=== PATIENT | female | born 1965 | race Caucasian/White ===

== ENCOUNTER 2019-06-15 08:20 | Emergency (ER) | payer MEDICAID ==
[2019-06-15] MEDS ORDERED: CITA-145 PO (08:29)
[2019-06-15] MEDS ORDERED: PANT40TA65 PO (08:29)
[2019-06-15] MEDS ORDERED: ESTR0.62 PO (08:29)
[2019-06-15] MEDS ORDERED: CARI250T10 PO (09:22)
[2019-06-15] MEDS ORDERED: AMIT-108 PO (09:22)
[2019-06-15] MEDS ORDERED: predniSONE 5 MG TAB PO ONE (09:45)
[2019-06-15] MEDS ORDERED: AMITRIPTYLINE HCL 25 MG TAB PO ONE (09:45)
[2019-06-15] MEDS ORDERED: CARISOPRODOL 350 MG TAB PO ONE (09:45)
[2019-06-15 10:00] VITALS: BP 157/107
[2019-06-15] MEDS ORDERED: predniSONE 20 MG TAB PO ONE (10:04)
--- NOTE | 2019-06-15 10:12 | ER Report ---
History and Physical Time Seen By MD: 09:20 Hx. of Stated Complaint: BILAT FOOT FOOT PAIN WITH WOUNDS HPI/ROS CHIEF COMPLAINT: Acute on chronic foot pain HISTORY OF PRESENT ILLNESS: 53-year-old female with a history of idiopathic neuropathy of feet presents complaining of bilateral foot pain increasing. Patient traveled out here by car 1200 miles and she did not bring her codon, Soma, or amitriptyline. Patient has chronic neuropathy of the feet and blistering and breakdown of the feet as well. Her right foot is worse with pain and breakdown than her left foot which is normal. She did not bring any socks or shoes. Her is a batch trucker and has chronic lower extremity problems and had a foot amputation in this hospital yesterday. Patient generally wears socks and puts [place] ointment on her feet. She is very anxious and stressed out about this because her but because of her health, her daughter was just murdered, and she has stepdaughter and uses drugs living at their home. Patient has been tried on Lyrica, gabapentin, and your benzodiazepines. She refuses to take any of these. Patient has history of the idiopathic neuropathy, anxiety, depression, on replacement therapy, chronic pain, irritable bowel syndrome with spastic pain, COPD, reactive airway disease and she quit smoking 3 years ago. Patient does have some nausea right now and she does have Zofran which has been helpful. She also takes Protonix for her stomach. REVIEW OF SYSTEMS: Constitutional: No fever, no chills. Eyes: No discharge. ENT: No sore throat. Patient does have dentures. Cardiovascular: No chest pain, no palpitations. Respiratory: No cough, no shortness of breath. Gastrointestinal: Patient has chronic abdominal pain epigastric and she has nausea and vomiting at this time because the irritable bowel as well as the stress that she is under. Her Zofran and Protonix is helping in this area.. Genitourinary: No hematuria. Musculoskeletal: No back pain. Chronic bilateral foot pain with plantar foot breakdown, contractures and especially increasing wounds over the plantar foot. Skin: No rashes. The foot problems as described above Neurological: No headache. DIFFERENTIAL DIAGNOSIS: After history and physical exam differential diagnosis was considered for idiopathic neuropathy of the feet with acute on chronic pain. History of depression and anxiety was marked increase of the anxiety during this road trip. Chronic pain and treatment for chronic pain worsened during this trip. He'll bowel syndrome worsened during his trip. Remainder of the 14 system rev: Yes Allergies: Coded Allergies: codeine (Verified Allergy, Intermediate, 06/15/19) Home Meds Active Scripts Prednisone (PREDNISONE) 20 Mg Tablet, 20 MG PO QDAY for PAIN for 10 Days, #10 TAB Prov:ASHKAN VAUGHN MD 06/15/19 Carisoprodol (SOMA) 350 Mg Tablet, 350 MG PO BID for Muscle Relaxant, #20 TAB Prov:ASHKAN VAUGHN MD 06/15/19 Amitriptyline Hcl (AMITRIPTYLINE HCL) 25 Mg Tablet, 25 MG PO QHS PRN for sleep, #10 TAB Prov:ASHKAN VAUGHN MD 06/15/19 Reported Medications Carisoprodol (SOMA) 250 Mg Tablet, 250 MG PO PRN, TAB 06/15/19 Amitriptyline Hcl (AMITRIPTYLINE HCL) 50 Mg Tablet, 50 MG PO QHS, #5 TAB 06/15/19 Citalopram Hydrobromide (CITALOPRAM HBR) 20 Mg Tablet, 20 MG PO QDAY, #5 TAB 06/15/19 Estrogens, Conjugated 0.625 Mg Tab (PREMARIN 0.625 MG TAB) 0.625 Mg Tablet, 0.625 MG PO QDAY, TAB 06/15/19 Pantoprazole Sodium (PANTOPRAZOLE SODIUM) 40 Mg Tablet.dr, 40 MG PO QDAY, TAB.SR 06/15/19 Past Medical/Surgical History Patient is allergic to codeine or at least sensitive in that it makes her sick. Patient prefers also not to take benzodiazepines, Lyrica, or [place] because it makes her feel. Illnesses: Hormone replacement therapy, depression, anxiety, chronic pain syndrome, idiopathic neuropathy of the feet, irritable bowel syndrome with spasticity, COPD, and reactive airway disease. Patient stopped smoking 3 years ago. Surgeries: Cholecystectomy, laparoscopy for an abdominal fluid-filled cyst and incidental appendectomy, total hysterectomy Reviewed Nurses Notes: Yes Hx Smoking: Yes Smoking Status: Former Smoker Constitutional Vital Sign - Last 24 Hours 06/15/19 06/15/19 06/15/19 06/15/19 08:26 08:30 09:00 09:30 Temp 98.9 Pulse 122 115 110 112 Resp 18 B/P (MAP) 169/110 173/110 (131) 169/104 (125) 180/105 (130) Pulse Ox 92 92 91 92 O2 Delivery Room Air 06/15/19 10:00 Pulse 110 B/P (MAP) 157/107 (124) Physical Exam General Appearance: The patient is alert, has no immediate need for airway protection and no current signs of toxicity. [ ] Eyes: Pupils equal and round no injection. Respiratory: Chest is non tender, lungs are clear to auscultation. Cardiac: regular rate and rhythm Gastrointestinal: Abdomen is soft and tender only slightly in the epigastric area., no masses, bowel sounds normal. Musculoskeletal: Neck: Neck is supple and non tender. Extremities have full range of motion except for any contractured toes and with plantar and dorsiflexion of the feet and are non tender. Patient has breakdown into the subcutaneous tissue of the plantar part of the forefoot up in special into the great toe on the right and similar but small areas of breakdown on the left plantar over the lateral MP area and up onto the toe. Her feet are very tender to touch. Skin: No rashes or lesions. Medical Decision Making ED Course/Re-evaluation ED Course Patient was evaluated and found to have an acute on chronic pain problem. She also has a lot of anxiety and sleep problem. Patient has etiopathic neuropathy of the feet with foot breakdown. She is also not sleeping well and she is very stressed out. Patient was given prednisone 20 mg, Elavil 25 mg to help with her sleep as well as pain. Soma 350 mg once and [place] 5 mg #10 mg. Decision to Disposition Date: Jun 15, 2019 Decision to Disposition Time: 10:00 Depart Departure Latest Vital Signs Vital Signs Date Time Temp Pulse Resp B/P (MAP) Pulse Ox O2 Delivery O2 Flow Rate FiO2 06/15/19 10:00 110 157/107 (124) 06/15/19 09:30 92 06/15/19 08:26 98.9 18 Room Air Impression: Primary Impression: Foot and toe(s), blister, without mention of infection Additional Impressions: Anxiety as acute reaction to exceptional stress Insomnia disorder Condition: Improved Disposition: HOME OR SELF-CARE New Scripts Prednisone (PREDNISONE) 20 Mg Tablet 20 MG PO QDAY for PAIN for 10 Days, #10 TAB Prov: ASHKAN VAUGHN MD 06/15/19 Carisoprodol (SOMA) 350 Mg Tablet 350 MG PO BID for Muscle Relaxant, #20 TAB Prov: ASHKAN VAUGHN MD 06/15/19 Amitriptyline Hcl (AMITRIPTYLINE HCL) 25 Mg Tablet 25 MG PO QHS PRN for sleep, #10 TAB Prov: ASHKAN VAUGHN MD 06/15/19 Departure Forms: ER Transition Record, Medications Reconciliation, Patient Portal Information Patient Instructions: Anxiety (ED), Diabetic Peripheral Neuropathy (ED) Additional Instructions: Prednisone 20 mg one a day for 10 days. Soma 3 her 50 mg take one tablet twice a day if needed for pain, anxiety, and spasms. Elavil 25 mg at bedtime for sleep but it also helps for anxiety and pain. Dressing changes with Vaseline to your feet daily. Follow-up with your PCP is essentially get back to home. Problem Qualifiers Additional Impressions: Insomnia disorder Insomnia type: primary Qualified Codes: F51.01 - Primary insomnia ASHKAN VAUGHN MD Jun 15, 2019 10:12
[2019-06-15] MEDS ORDERED: PRED20TA6 PO (10:21)
[2019-06-15] MEDS ORDERED: AMIT-106 PO (10:21)
[2019-06-15] MEDS ORDERED: CARI-1 PO (10:21)
[2019-06-15] MEDS ORDERED: APAP/HYDROCODONE 325/5 TAB PO ONE (10:40)
[2019-06-16] MEDS ORDERED: LOR5/325 PO (16:38)
== END 2019-06-15 10:24 | disposition home or self-care (01) ==
LOC: ER 09:25
DX: S90.822A Blister (nonthermal), left foot, initial encounter (principal); S90.821A Blister (nonthermal), right foot, initial encounter; G89.29 Other chronic pain; F41.9 Anxiety disorder, unspecified; F51.01 Primary insomnia
CPT/HCPCS: 99283; J7512

== ENCOUNTER 2019-06-16 15:10 | Emergency (ER) | payer MEDICAID ==
[~2019-06-16 15:10] MED LIST: AMIT-106 PO; AMIT-108 PO; CARI-1 PO; CARI250T10 PO; CITA-145 PO; ESTR0.62 PO; PANT40TA65 PO; PRED20TA6 PO
[2019-06-16 15:14] VITALS: BP 172/93
--- NOTE | 2019-06-16 15:31 | ER Report ---
History and Physical Time Seen By MD: 15:26 Hx. of Stated Complaint: WORSENING OF PAIN ON RIGHT FOOT. HPI/ROS CHIEF COMPLAINT: Lateral foot pain and needs wound dressing change HISTORY OF PRESENT ILLNESS: 53-year-old female who was seen yesterday for idiopathic neuropathy chronic foot pain with contraction problems and wound problems presents back today for wound dressing change on her feet. She is also having increasing pain in the seat. Patient was given 2 [place] yesterday. She was able to sleep 5 hours as she was given Elavil and Soma as well. She does think that the wounds looked better but the foot pain is still quite severe. REVIEW OF SYSTEMS: Respiratory: No cough, no dyspnea. Cardiovascular: No chest pain, no palpitations. Gastrointestinal: No vomiting, no abdominal pain. Musculoskeletal: No back pain. Patient was jumping feet and the wound pain from idiopathic neuropathy pain. Remainder of the 14 system rev: Yes Allergies: Coded Allergies: codeine (Verified Allergy, Intermediate, 06/16/19) Home Meds Active Scripts Prednisone (PREDNISONE) 20 Mg Tablet, 20 MG PO QDAY for PAIN for 10 Days, #10 TAB Prov:ASHKAN VAUGHN MD 06/15/19 Carisoprodol (SOMA) 350 Mg Tablet, 350 MG PO BID for Muscle Relaxant, #20 TAB Prov:ASHKAN VAUGHN MD 06/15/19 Amitriptyline Hcl (AMITRIPTYLINE HCL) 25 Mg Tablet, 25 MG PO QHS PRN for sleep, #10 TAB Prov:ASHKAN VAUGHN MD 06/15/19 Reported Medications Carisoprodol (SOMA) 250 Mg Tablet, 250 MG PO PRN, TAB 06/15/19 Amitriptyline Hcl (AMITRIPTYLINE HCL) 50 Mg Tablet, 50 MG PO QHS, #5 TAB 06/15/19 Citalopram Hydrobromide (CITALOPRAM HBR) 20 Mg Tablet, 20 MG PO QDAY, #5 TAB 06/15/19 Estrogens, Conjugated 0.625 Mg Tab (PREMARIN 0.625 MG TAB) 0.625 Mg Tablet, 0.625 MG PO QDAY, TAB 06/15/19 Pantoprazole Sodium (PANTOPRAZOLE SODIUM) 40 Mg Tablet.dr, 40 MG PO QDAY, TAB.SR 06/15/19 Past Medical/Surgical History REVIEW OF SYSTEMS: Constitutional: No fever, no chills. Eyes: No discharge. ENT: No sore throat. Patient does have dentures. Cardiovascular: No chest pain, no palpitations. Respiratory: No cough, no shortness of breath. Gastrointestinal: Patient has chronic abdominal pain epigastric and she has nausea and vomiting at this time because the irritable bowel as well as the stress that she is under. Her Zofran and Protonix is helping in this area.. Genitourinary: No hematuria. Musculoskeletal: No back pain. Chronic bilateral foot pain with plantar foot breakdown, contractures and especially increasing wounds over the plantar foot. Skin: No rashes. The foot problems as described above Neurological: No headache. DIFFERENTIAL DIAGNOSIS: After history and physical exam differential diagnosis was considered for idiopathic neuropathy of the feet with acute on chronic pain. History of depression and anxiety was marked increase of the anxiety during this road trip. Chronic pain and treatment for chronic pain worsened during this trip. He'll bowel syndrome worsened during his trip. Remainder of the 14 system rev: Yes Reviewed Nurses Notes: Yes Hx Smoking: Yes Smoking Status: Former Smoker Constitutional Vital Sign - Last 24 Hours 06/16/19 15:14 Temp 98.5 Pulse 103 Resp 12 B/P (MAP) 172/93 Pulse Ox 94 O2 Delivery Room Air Physical Exam Gen.: Well-developed well-nourished and patient later back with her feet spasming causing some pain. HEENT-unremarkable Right foot with dosing contractures as is normal for her. The wound dressing has been removed and the wound itself looks improved. Still had a lot of pain. Left foot has far less in the way of wounds but still with pain. Medical Decision Making ED Course/Re-evaluation ED Course Patient presented for wound care dressing change as well as increasing pain in her feet. The dressing was removed and both feet actually look improved over yesterday. She is only given 2 Lortab 5/25's yesterday and that took her 24 hours by breaking those in half and taking a half every 6 hours. She is having a lot of spastic or spasm type pain in the feet at the present time. The dressings were changed and she tolerated that well. She is given hydrocodone/APAP 5/325 #2 pills at this time. Decision to Disposition Date: Jun 16, 2019 Decision to Disposition Time: 16:33 Depart Departure Latest Vital Signs Vital Signs Date Time Temp Pulse Resp B/P (MAP) Pulse Ox O2 Delivery O2 Flow Rate FiO2 06/16/19 15:14 98.5 103 12 172/93 94 Room Air Impression: Primary Impression: Encounter for wound care Additional Impression: Foot pain, bilateral Condition: Improved Disposition: HOME OR SELF-CARE New Scripts Hydrocodone Bit/Acetaminophen (HYDROCODON-ACETAMINOPHEN 5-325) 1 Each Tablet 1 EACH PO Q4H PRN for PAIN, #20 TAB 0 Refills Prov: ASHKAN VAUGHN MD 06/16/19 Patient Instructions: Acute Wound Care (ED) Additional Instructions: Continue to take Elavil 25 mg to 50 mg at at bedtime for sleep and also for pain. Soma 325 mg twice a day for the spasms that you're having any feet. Lortab 5/325 mg 1 tablet 2 or 4 times a day as needed for foot pain. Dressing changes every 2 days for now and dress with Vaseline. Watch for infection. Problem Qualifiers ASHKAN VAUGHN MD Jun 16, 2019 15:31
[2019-06-16] MEDS ORDERED: APAP/HYDROCODONE 325/5 TAB PO ONE (16:10)
[2019-06-16] MEDS ORDERED: LOR5/325 PO (16:38)
== END 2019-06-16 16:40 | disposition home or self-care (01) ==
LOC: ER 15:39
DX: M79.672 Pain in left foot (principal); M79.671 Pain in right foot
CPT/HCPCS: 99283

== ENCOUNTER 2019-06-19 10:21 | Emergency (ER) | payer MEDICAID ==
[~2019-06-19 10:21] MED LIST changes: +LOR5/325 PO
--- NOTE | 2019-06-19 10:24 | ER Report ---
History and Physical Time Seen By MD: 10:20 HPI/ROS CHIEF COMPLAINT: Abdominal pain, palpitations, foot pain HISTORY OF PRESENT ILLNESS: Patient is a 53-year-old female here with complaints of the above. Patient is in town visiting her who recently had an amputation BKA. Patient reports palpitations, rapid heart rate, general malaise, generalized abdominal pain, constipation 5 days. Patient is afebrile, mildly tachycardic but hemodynamically stable at time of evaluation. Patient does endorse nausea but denies vomiting. REVIEW OF SYSTEMS: Constitutional: No fever, no chills. Eyes: No discharge. ENT: No sore throat. Cardiovascular: No chest pain, + palpitations. Respiratory: No cough, no shortness of breath. Gastrointestinal: + Generalized abdominal pain, no vomiting. + nausea Genitourinary: No hematuria. Musculoskeletal: No back pain. Skin: No rashes. Neurological: No headache. Allergies: Coded Allergies: codeine (Verified Allergy, Intermediate, 06/16/19) Home Meds Active Scripts Hydrocodone Bit/Acetaminophen (HYDROCODON-ACETAMINOPHEN 5-325) 1 Each Tablet, 1 TAB PO Q4H PRN for PAIN, #20 TAB 0 Refills Prov:ANAMARIA LAZO DO 06/19/19 Carisoprodol (SOMA) 350 Mg Tablet, 350 MG PO BID PRN for MUSCLE SPASMS, #20 TAB Prov:ANAMARIA LAZO DO 06/19/19 Prednisone (PREDNISONE) 20 Mg Tablet, 20 MG PO QDAY for PAIN for 10 Days, #10 TAB Prov:ASHKAN VAUGHN MD 06/15/19 Amitriptyline Hcl (AMITRIPTYLINE HCL) 25 Mg Tablet, 25 MG PO QHS PRN for sleep, #10 TAB Prov:ASHKAN VAUGHN MD 06/15/19 Reported Medications Amitriptyline Hcl (AMITRIPTYLINE HCL) 50 Mg Tablet, 50 MG PO QHS, #5 TAB 06/15/19 Citalopram Hydrobromide (CITALOPRAM HBR) 20 Mg Tablet, 20 MG PO QDAY, #5 TAB 06/15/19 Estrogens, Conjugated 0.625 Mg Tab (PREMARIN 0.625 MG TAB) 0.625 Mg Tablet, 0.625 MG PO QDAY, TAB 06/15/19 Pantoprazole Sodium (PANTOPRAZOLE SODIUM) 40 Mg Tablet.dr 40 MG PO QDAY, TAB.SR 06/15/19 Discontinued Reported Medications Carisoprodol (SOMA) 250 Mg Tablet, 250 MG PO PRN, TAB 06/15/19 Discontinued Scripts Hydrocodone Bit/Acetaminophen (HYDROCODON-ACETAMINOPHEN 5-325) 1 Each Tablet, 1 EACH PO Q4H PRN for PAIN, #20 TAB 0 Refills Prov:ASHKAN VAUGHN MD 06/16/19 Carisoprodol (SOMA) 350 Mg Tablet, 350 MG PO BID for Muscle Relaxant, #20 TAB Prov:ASHKAN VAUGHN MD 06/15/19 Hx Smoking: Yes Smoking Status: Former Smoker Constitutional Vital Sign - Last 24 Hours 06/19/19 06/19/19 06/19/19 06/19/19 10:21 10:35 10:37 10:42 Pulse 118 B/P (MAP) 87/25 (45) 210/124 (152) 196/122 (146) 06/19/19 06/19/19 06/19/19 06/19/19 10:45 10:51 11:00 11:21 Temp 98.3 Pulse 112 111 110 Resp 18 11 21 B/P (MAP) 175/105 (128) Pulse Ox 95 92 92 O2 Delivery Room Air 06/19/19 06/19/19 06/19/19 06/19/19 11:26 11:56 12:00 12:05 Pulse 111 107 106 Resp 9 9 7 B/P (MAP) 173/102 (125) Pulse Ox 92 98 97 06/19/19 06/19/19 06/19/19 06/19/19 12:30 12:35 13:00 13:05 Pulse 110 110 Resp 16 14 B/P (MAP) 181/97 (125) 179/111 (133) Pulse Ox 94 92 06/19/19 06/19/19 06/19/19 06/19/19 13:10 13:20 13:30 13:40 Pulse 112 112 Resp 18 8 B/P (MAP) 191/104 (133) 174/104 (127) Pulse Ox 88 93 06/19/19 06/19/19 14:00 14:10 Pulse 113 Resp 13 B/P (MAP) 177/103 (127) Pulse Ox 92 Physical Exam General Appearance: The patient is alert, has no immediate need for airway protection and no signs of toxicity. Anxious appearing Eyes: Pupils equal and round no pallor or injection. ENT, Mouth: Mucous membranes are moist. Respiratory: There are no retractions, lungs are clear to auscultation. Cardiovascular: Rapid regular rhythm Gastrointestinal: Abdomen is soft and + mildly tender, no masses, bowel sounds normal. No rebound or guarding Neurological: No focal neurological deficits, cranial nerves intact Skin: Warm and dry, no rashes. Musculoskeletal: Neck is supple non tender. Extremities are nontender, nonswollen and have full range of motion. DIFFERENTIAL DIAGNOSIS: After history and physical exam differential diagnosis was considered for abdominal pain including but not limited to appendicitis, cholecystitis, gastritis and urinary tract infection.adult fever including but not limited to viral syndromes including urinary tract infection, pneumonia and sepsis. Medical Decision Making Data Points Result Diagram: 06/19/19 1035 06/19/19 1035 Laboratory Hematology Test 06/19/19 10:35 White Blood Count 17.1 k/uL (4.5-11.0) H Red Blood Count 4.42 M/uL (4.17-5.56) Hemoglobin 14.3 g/dL (12.0-16.0) Hematocrit 41.2 % (34.0-47.0) Mean Corpuscular Volume 93.3 fL (80.0-96.0) Mean Corpuscular Hemoglobin 32.3 pg (26.0-33.0) Mean Corpuscular Hemoglobin Concent 34.6 g/dL (32.0-36.0) Red Cell Distribution Width 14.1 % (11.5-14.5) Platelet Count 534 K/uL (150-450) H Mean Platelet Volume 6.5 fL (7.2-11.1) L Neutrophils (%) (Auto) 65.5 % (39.4-72.5) Lymphocytes (%) (Auto) 29.0 % (17.6-49.6) Monocytes (%) (Auto) 4.2 % (4.1-12.4) Eosinophils (%) (Auto) 0.7 % (0.4-6.7) Basophils (%) (Auto) 0.6 % (0.3-1.4) Nucleated RBC Relative Count (auto) 0.1 /100WBC Neutrophils # (Auto) 11.2 K/uL (2.0-7.4) H Lymphocytes # (Auto) 5.0 K/uL (1.3-3.6) H Monocytes # (Auto) 0.7 K/uL (0.3-1.0) Eosinophils # (Auto) 0.1 K/uL (0.0-0.5) Basophils # (Auto) 0.1 K/uL (0.0-0.1) Nucleated RBC Absolute Count (auto) 0.01 K/uL Peripheral Blood Smear Yes Y/N Chemistry Test 06/19/19 10:35 Sodium Level 142 mmol/L (137-145) Potassium Level 3.1 mmol/L (3.5-5.0) Chloride Level 98 mmol/L (98-107) Carbon Dioxide Level 28 mmol/L (22-31) Blood Urea Nitrogen 12 mg/dl (7-18) Creatinine 0.90 mg/dl (0.52-1.04) Glomerular Filtration Rate Calc > 60.0 Random Glucose 159 mg/dl (75-110) Lactate 1.5 mmol/L (0.7-2.1) Calcium Level 9.2 mg/dl (8.4-10.2) Total Bilirubin 0.4 mg/dl (0.2-1.3) Aspartate Amino Transf (AST/SGOT) 28 U/L (0-35) Alanine Aminotransferase (ALT/SGPT) 24 U/L (0-56) Alkaline Phosphatase 131 U/L (0-126) Troponin I < 0.012 ng/ml Total Protein 9.0 g/dl (6.3-8.2) Albumin 4.8 g/dl (3.5-5.0) Lipase 32 U/L (23-300) Thyroid Stimulating Hormone (TSH) 1.57 uIU/ml (0.46-4.68) Urinalysis Test 06/19/19 13:18 Urine Color Yellow Urine Clarity Slightly-cloudy Urine pH 7.0 pH (4.8-9.5) Urine Specific [place] 1.031 Urine Protein Negative mg/dL (NEGATIVE) Urine Glucose (UA) Negative mg/dL (NEGATIVE) Urine Ketones Trace mg/dL (NEGATIVE) Urine Blood Small (NEGATIVE) Urine Nitrite Negative (NEGATIVE) Urine Bilirubin Negative (NEGATIVE) Urine Urobilinogen Negative mg/dL (0.2-1.9) Urine Leukocyte Esterase Negative (NEGATIVE) Urine RBC 1 /HPF (0-2/HPF) Urine WBC 1 /HPF (0-5/HPF) Urine Squamous Epithelial Cells Many /LPF (</=FEW) Urine Bacteria Few /HPF (NONE-FEW) Urine Hyaline Casts Few /LPF (NONE-FEW) Urine Mucus Few /HPF (NONE-FEW) EKG/Imaging EKG Interpretation 12 lead EKG: Sinus tachycardia, ventricular rate 117, QTC 443, no ischemic changes Rhythm: Sinus tachycardia [place]: normal QRS: normal ST segments: normal Imaging PATIENT NAME: Ivette Villela : 1965 MR: [id number] V: [id number] EXAM DATE: ORDERING PHYSICIAN: ANAMARIA LAZO TECHNOLOGIST: Location: [facility] Patient: Ivette Villela : 1965 Visit/Account:[id number] Date of Sevice: 06/19/2019 CT CHEST ABDOMEN PELVIS W/CON HISTORY: SOB, diffuse abd pain, tachy TECHNIQUE: CT chest, abdomen and pelvis with intravenous contrast. One of the following dose optimization techniques was utilized in the performance of this exam: Automated exposure control; adjustment of the mA and/or kV according to the patient's size; or use of an iterative reconstruction technique. Specific details can be referenced in the facility's radiology CT exam operational policy. CONTRAST: Isovue-370 75 mL COMPARISON: None. FINDINGS: CHEST: Lungs: Central airways are patent. No concerning pulmonary parenchymal abnormalities. Heart and pulmonary vessels: Normal heart size. Vessels follow normal course and caliber. Mediastinum:Unremarkable Caprice: Negative. Pleura: Negative. Chest wall: Negative. Bones:No aggressive lesions. ABDOMEN/PELVIS: Hepatobiliary: Negative. Cholecystectomy Spleen: Negative. Adrenals: Negative. Pancreas: Negative. Kidneys: Low-density lesions are most likely cysts. Largest in the right kidney measures 1.4 cm. GI: No appendicitis or diverticulitis. Moderate stool burden. Low pelvic anastomosis appears satisfactory Vessels/spaces/nodes: Negative. Pelvis/bladder: Hysterectomy. Bladder is unremarkable Bones/soft tissues: Degenerative changes of the left hip. IMPRESSION: No CT correlate for abdominal pain. Degenerative changes of the left femoral head, question avascular necrosis. Moderate stool burden may correlate with constipation. Additional chronic findings as above. Report Dictated By: Antonio Lucio MD at 06/19/2019 12:05 PM Report E-Signed By: Antonio Lucio MD at 06/19/2019 12:11 PM WSN:[id number] ED Course/Re-evaluation ED Course Patient is a 53-year-old female here with complaints of abdominal discomfort, pain, general malaise, palpitations. Patient was administered Ativan, normal saline bolus, analgesics with significant improvement in symptoms. CT imaging of the chest abdomen pelvis showed no acute findings but did demonstrate moderate stool burden. There is no pain in the hips bilaterally. Patient was given scripts for analgesics, Soma. Labs were remarkable for a mild leukocytosis without a shift in the setting of current prednisone treatment. Recommend close PCP follow-up. Return precautions provided. Decision to Disposition Date: Jun 19, 2019 Decision to Disposition Time: 14:08 Depart Departure Latest Vital Signs Vital Signs Date Time Temp Pulse Resp B/P (MAP) Pulse Ox O2 Delivery O2 Flow Rate FiO2 06/19/19 14:10 113 13 92 06/19/19 14:00 177/103 (127) 06/19/19 10:45 98.3 Room Air Impression: Primary Impression: Foot pain, bilateral Additional Impressions: Abdominal pain Constipation Condition: Improved Disposition: HOME OR SELF-CARE New Scripts Hydrocodone Bit/Acetaminophen (HYDROCODON-ACETAMINOPHEN 5-325) 1 Each Tablet 1 TAB PO Q4H PRN for PAIN, #20 TAB 0 Refills Prov: ANAMARIA LAZO DO 06/19/19 Carisoprodol (SOMA) 350 Mg Tablet 350 MG PO BID PRN for MUSCLE SPASMS, #20 TAB Prov: ANAMARIA LAZO DO 06/19/19 Patient Instructions: Abdominal Pain (ED) Additional Instructions: Please drink plenty of water. Please return promptly if you develop worsening pain, fevers, inability to keep down food or fluids, blood in the stools or urine. You may take Soma one tablet twice daily as needed for muscle spasms, Lortab 1 tablet every 4-6 hours as needed for breakthrough pain control. Please follow up closely with your primary care provider Problem Qualifiers ANAMARIA LAZO DO Jun 19, 2019 10:24
[2019-06-19] MEDS ORDERED: NS(*) 0.9% 1000 ML BAG 1,000 ML IV ONE (10:48)
[2019-06-19] MEDS ORDERED: LORazepam 2 MG/ML VIAL IVP ONE (10:50)
[2019-06-19] MEDS ORDERED: fentaNYL CITR 100 MCG/2 ML AMP IVP ONE ×2 (10:50→14:00)
[2019-06-19 11:02] LABS: PLATELET COUNT, AUTOMATED 534 K/uL (150-450)
[2019-06-19] MEDS ORDERED: IOPAMIDOL 76% 100 ML INFUS BTL 100 ML ONE (11:12)
[2019-06-19] MEDS ORDERED: ONDANSETRON 4 MG/2 ML VIAL IVP ONE (11:25)
--- NOTE | 2019-06-19 12:23 | RADIOLOGY IMAGING REPORT ---
FACILITY: [facility] - [place] PATIENT NAME: Ivette Villela : 1965 MR: [id number] V: [id number] EXAM DATE: ORDERING PHYSICIAN: ANAMARIA LAZO TECHNOLOGIST: Location: [facility] - [place] Patient: Ivette Villela : 1965 Visit/Account:[id number] Date of Sevice: 06/19/2019 CT CHEST ABDOMEN PELVIS W/CON HISTORY: SOB, diffuse abd pain, tachy TECHNIQUE: CT chest, abdomen and pelvis with intravenous contrast. One of the following dose optimization techniques was utilized in the performance of this exam: Autom ated exposure control; adjustment of the mA and/or kV according to the patient's size; or use of an i terative reconstruction technique. Specific details can be referenced in the facility's radiology C T exam operational policy. CONTRAST: Isovue-370 75 mL COMPARISON: None. FINDINGS: CHEST: Lungs: Central airways are patent. No concerning pulmonary parenchymal abnormalities. Heart and pulmonary vessels: Normal heart size. Vessels follow normal course and caliber. Mediastinum:Unremarkable Caprice: Negative. Pleura: Negative. Chest wall: Negative. Bones:No aggressive lesions. ABDOMEN/PELVIS: Hepatobiliary: Negative. Cholecystectomy Spleen: Negative. Adrenals: Negative. Pancreas: Negative. Kidneys: Low-density lesions are most likely cysts. Largest in the right kidney measures 1.4 cm. GI: No appendicitis or diverticulitis. Moderate stool burden. Low pelvic anastomosis appears satisfa ctory Vessels/spaces/nodes: Negative. Pelvis/bladder: Hysterectomy. Bladder is unremarkable Bones/soft tissues: Degenerative changes of the left hip. IMPRESSION: No CT correlate for abdominal pain. Degenerative changes of the left femoral head, question avascular necrosis. Moderate stool burden may correlate with constipation. Additional chronic findings as above. Report Dictated By: Antonio Lucio MD at 06/19/2019 12:05 PM Report E-Signed By: Antonio Lucio MD at 06/19/2019 12:11 PM [email or web address]
[2019-06-19] MEDS ORDERED: ONDANSETRON 4 MG ODT TABDP SL ONE (12:25)
[2019-06-19] MEDS ORDERED: APAP/HYDROCODONE 325/5 TAB PO ONE ×2 (12:30→14:05)
[2019-06-19 14:00] VITALS: BP 177/103
[2019-06-19] MEDS ORDERED: CARI-1 PO (14:14)
[2019-06-19] MEDS ORDERED: LOR5/325 PO (14:14)
--- NOTE | 2019-06-19 14:18 | EKG ---
FACILITY: [facility] PATIENT NAME: WANDA KLEIN : [id number] MR: [id number] V: [id number] EXAM DATE: ORDERING PHYSICIAN: ANAMARIA LAZO TECHNOLOGIST: YADIRA Test Reason : HURT FEET Blood Pressure : / mmHG Vent. Rate : 117 BPM Atrial Rate : 117 BPM P-R Int : 140 ms QRS Dur : 076 ms QT Int : 318 ms P-R-T Axes : 007 057 061 degrees QTc Int : 443 ms Sinus tachycardia Otherwise normal ECG No previous ECGs available Confirmed by MELA CALDERON ([id number]) on 06/19/2019 2:25:20 PM Referred By: CLIFTON Confirmed By:MELA CALDERON
[2019-06-21] MEDS ORDERED: CARI-1 PO (12:01)
[2019-06-21] MEDS ORDERED: ONDA4TAB97 PO (12:01)
[2019-06-21] MEDS ORDERED: HYDR-654 PO (12:01)
[2019-06-21] MEDS ORDERED: HYDR473S9 (12:52)
[2019-06-21] MEDS ORDERED: ALPR-429 PO (12:52)
[2019-06-21] MEDS ORDERED: ALBU8.5H IH (12:52)
[2019-06-21] MEDS ORDERED: FLUT1AER INH (12:52)
== END 2019-06-19 14:34 | disposition home or self-care (01) ==
LOC: ER 10:21
DX: M79.672 Pain in left foot (principal); M79.671 Pain in right foot; R10.9 Unspecified abdominal pain; K59.00 Constipation, unspecified
CPT/HCPCS: 71260; 74177; 81001; 83605; 83690; 84443; 84484; 85025; 93005; 96361; 96374; 96375; 97162; 99284; J2060; J2405; J3010; J7030; Q9967; S0119; 82040; 82247; 82310; 82374; 82435; 82565; 82947; 84075; 84132; 84155; 84295; 84450; 84460; 84520